=== PATIENT | female | born 1930 | race Caucasian/White ===

== ENCOUNTER 2018-07-22 08:04 | Emergency (ER) | payer MEDICARE, MEDICAID ==
[~2018-07-22] VITALS: Ht 160 cm; Wt 76.7 kg
[~2018-07-22 08:04] MED LIST: ATEN50TA PO; HYDR-1189 PO; LEVO500T20 PO; METR500T PO; MOM PO
[2018-07-22 08:21] VITALS: BP_SYST 153
[2018-07-22] MEDS ORDERED: ALBUTEROL SULFATE 0.083% 2.5 MG/3 ML VIAL.NEB INH ONE ×2 (09:00→09:45)
[2018-07-22] MEDS ORDERED: AMOXICILLIN/CLAVULANATE POTASSIUM 875 MG TABLET PO ONE (10:00)
[2018-07-22] MEDS ORDERED: KETOROLAC TROMETHAMINE 60 MG/2 ML VIAL IM ONE (10:45)
[2018-07-22 11:12] VITALS: BP_SYST 140
== END 2018-07-22 11:12 | disposition home or self-care (01) ==
LOC: SED 08:04
DX: M54.30 Sciatica, unspecified side (principal); R05 Cough; I10 Essential (primary) hypertension; Z86.79 Personal history of other diseases of the circulatory system; Z90.89 Acquired absence of other organs; Z79.899 Other long term (current) drug therapy
CPT/HCPCS: 71045; 74018; 86710; 94640; 96372; 99284; J1885; J7613; 36415

== ENCOUNTER 2018-08-30 18:34 | Emergency (ER) | payer MEDICARE, MEDICAID ==
[~2018-08-30] VITALS: Ht 160 cm; Wt 79.4 kg
[2018-08-30 18:51] VITALS: BP_SYST 149
[2018-08-30] MEDS ORDERED: NACL 0.9% 1,000 ML IV ONE (19:00)
[2018-08-30] MEDS ORDERED: LOPERAMIDE HCL 2 MG CAPSULE PO ONE (19:00)
--- NOTE | 2018-08-30 19:02 | NUR ---
Patient to ER bed 6 to gown for evaluation. Side rails up.
[2018-08-30] MEDS ORDERED: ONDANSETRON HCL 4 MG/2 ML VIAL IVP ONE ×2 (19:15→21:15)
[2018-08-30 19:30] LABS: BASOPHILS % (AUTO) 0.2 % (0.0-2.0); EOSINOPHILS # (AUTO) 0.1 K/uL (0.0-0.4); EOSINOPHILS % (AUTO) 0.5 % (0.0-4.0); HEMATOCRIT 43.5 % (36-48); HEMOGLOBIN 14.2 g/dL (12.0-16.0); LYMPHOCYTES % (AUTO) 8.8 % (20.5-51.5); MEAN CORPUSCULAR HEMOGLOBIN 28 pg (27-31); MEAN CORPUSCULAR HGB CONC 33 % (32-36); MEAN CORPUSCULAR VOLUME 86 fL (79.0-98.0); MONOCYTES # (AUTO) 0.4 K/uL (0.0-1.0); MONOCYTES % (AUTO) 3.5 % (1.7-9.3); NEUTROPHILS # (AUTO) 9.4 K/uL (1.8-7.7); PLATELET COUNT (AUTO) 317 K/uL (130-430); RED BLOOD CELL COUNT(AUTO) 5.06 MIL/uL (4.2-6.2); RED CELL DISTRIBUTION WIDTH 15.5 % (9.0-15.0); WHITE BLOOD COUNT (AUTO) 10.8 K/uL (4.8-10.8)
--- NOTE | 2018-08-30 19:35 | NUR ---
Dr. Estrada bedside for Pt eval
--- NOTE | 2018-08-30 19:42 | NUR ---
Pt BIB daughter to ED C/O sudden onset of multiple episodes of non-bloody water diarrhea ongoing since 3 AM today with associated diffuse abdominal pain and nausea. Pt's daughter reports the Pt has had an episode of diarrhea about every 15 minutes. Symptoms began after the Pt ate a large bowl of watermelon last night. Pt has Hx of diverticulosis, arthritis, hypothyroid, and hypertension. No other injuries and or complaints noted. VSS no s/s of acute distress. Resting on gurney with rails up
[2018-08-30 19:59] LABS: ANION GAP 11 (5-15); CALCIUM 8.8 mg/dL (8.4-11.0); CHLORIDE 102 mmol/L (98-107); CREATININE 1.11 mg/dL (0.55-1.30); GLUCOSE 141 mg/dL (70-99); SODIUM SERUM 136 mmol/L (136-145); UREA NITROGEN, BLOOD 28 mg/dL (8-21)
[2018-08-30 20:04] LABS: ALANINE AMINOTRANSFERASE 27 U/L (12-78); ALBUMIN 3.7 g/dL (3.4-4.8); ASPARTATE AMINOTRANSFERASE 19 U/L (10-37); TOTAL BILIRUBIN 0.9 mg/dL (0.0-1.0)
--- NOTE | 2018-08-30 21:05 | NUR ---
Dr. Baeza bedside for Pt update
[2018-08-30] MEDS ORDERED: metroNIDAZOLE 500 mg/NS 100 ML IV ONE (21:15)
[2018-08-30] MEDS ORDERED: metroNIDAZOLE 500 MG TABLET PO ONE (21:15)
[2018-08-30] MEDS ORDERED: PANTOPRAZOLE SODIUM 40 MG/VIAL (PROTONIX) IVP ONE (21:15)
--- NOTE | 2018-08-30 22:00 | NUR ---
VSS, no s/s of acute distress. Resting on gurney with rails up
[2018-08-30 23:00] VITALS: BP_SYST 149
--- NOTE | 2018-08-30 23:00 | NUR ---
Patient given written and verbal discharge instructions and verbalizes understanding. ER MD discussed with patient the results and treatment provided. Patient in stable condition. ID arm band removed. IV catheter removed intact and dressing applied, no active bleeding. Rx of Zofran given. Patient educated on pain management and to follow up with PMD. Pain Scale 0/10. Opportunity for questions provided and answered. Medication side effect fact sheet provided.
== END 2018-08-30 23:00 | disposition home or self-care (01) ==
LOC: SED 18:34
DX: K57.90 Diverticulosis of intestine, part unspecified, without perforation or abscess without bleeding (principal); I10 Essential (primary) hypertension; M19.90 Unspecified osteoarthritis, unspecified site; Z86.79 Personal history of other diseases of the circulatory system; Z90.89 Acquired absence of other organs; Z79.899 Other long term (current) drug therapy
CPT/HCPCS: 36415; 74176; 80053; 85025; 96361; 96365; 96375; 96376; 99284; C9113; J2405; J3490; J7030

== ENCOUNTER 2019-03-12 20:17 | Emergency (ER) | payer MEDICARE, MEDICAID ==
[~2019-03-12] VITALS: Ht 134.6 cm; Wt 72.6 kg
[2019-03-12 21:15] VITALS: BP_SYST 140
--- NOTE | 2019-03-12 21:22 | NUR ---
Pt placed to ER waiting room with daughter in stable condition.
--- NOTE | 2019-03-12 21:54 | NUR ---
Pt placed to ER bed 07. Report given to TERESA Alexander.
--- NOTE | 2019-03-12 23:05 | NUR ---
Dr. Jha bedside for Pt eval
[2019-03-12] MEDS ORDERED: DIPH-TET-PERTUS Vaccine 0.5 ML VIAL (ADACEL) I.M. ONE (23:15)
[2019-03-12] MEDS ORDERED: KETOROLAC TROMETHAMINE 60 MG/2 ML VIAL IM ONE (23:15)
--- NOTE | 2019-03-12 23:15 | NUR ---
Pt BIB family to ED C/O sharp constant 8/10 pain in left smith without radiation. Pt without treatment for pain. Pt is able to ambulate. Pt denies head trauma or LOC. Pt denies fever, chills, nausea or vomiting. Pt denies chest pain or SOB. Pt reports headache. No other complaints and or injuries noted VSS no s/s of acute distress Resting on gurney rails up
[2019-03-12 23:32] VITALS: BP_SYST 140
--- NOTE | 2019-03-12 23:32 | NUR ---
Patient given written and verbal discharge instructions and verbalizes understanding. ER MD discussed with patient the results and treatment provided. Patient in stable condition. ID arm band removed. Rx of Motrin and Streetman given. Patient educated on pain management and to follow up with PMD. Pain Scale 0/10 Opportunity for questions provided and answered. Medication side effect fact sheet provided.
== END 2019-03-12 23:32 | disposition home or self-care (01) ==
LOC: SED 20:17
DX: S89.92XA Unspecified injury of left lower leg, initial encounter (principal); I51.89 Other ill-defined heart diseases; I10 Essential (primary) hypertension; E07.9 Disorder of thyroid, unspecified; Z79.899 Other long term (current) drug therapy; W22.8XXA Striking against or struck by other objects, initial encounter; Y93.89 Activity, other specified; Y92.89 Other specified places as the place of occurrence of the external cause; Y99.8 Other external cause status
CPT/HCPCS: 90471; 90715; 96372; 99283; J1885

== ENCOUNTER 2019-03-15 10:35 | Emergency (ER) | payer MEDICARE, MEDICAID ==
[~2019-03-15] VITALS: Ht 134.6 cm; Wt 72.6 kg
[2019-03-15 10:35] VITALS: BP_SYST 121
--- NOTE | 2019-03-15 10:35 | NUR ---
BROUGHT BACK TO BED #6 AND TRIAGED. REPORT GIVEN TO SHELLY
--- NOTE | 2019-03-15 10:45 | NUR ---
RAYMOND Estrada at bedside examining patient.
--- NOTE | 2019-03-15 10:50 | NUR ---
Patient presented to ER for Wound check. Patient A&Ox4, afebrile, ambulatory with walker to ER, BIB daughter, pain 5/10, denies N/V/D. dressing removed, skin discoloration or bruise, skin tear, no bleeding. cleanesed site and placed clean dry bandage.
[2019-03-15 11:15] VITALS: BP_SYST 120
--- NOTE | 2019-03-15 11:15 | NUR ---
Patient given written and verbal discharge instructions and verbalizes understanding. ER MD discussed with patient the results and treatment provided. Patient in stable condition. ID arm band removed. No Rx given. Patient educated on pain management and to follow up with PMD. Pain Scale 5/10 tolerable for patient. Opportunity for questions provided and answered. Medication side effect fact sheet provided.
== END 2019-03-15 11:15 | disposition home or self-care (01) ==
LOC: SED 10:35
DX: S80.812D Abrasion, left lower leg, subsequent encounter (principal); I51.89 Other ill-defined heart diseases; I10 Essential (primary) hypertension; E07.9 Disorder of thyroid, unspecified; Z79.899 Other long term (current) drug therapy; X58.XXXD Exposure to other specified factors, subsequent encounter
CPT/HCPCS: 99281; 99283